=== PATIENT | male | born 1995 ===

== ENCOUNTER 2019-01-26 05:30 | Day surgery (SDC) | payer OTHER ==
[2019-01-26] MEDS ORDERED: TRAM1TAB98 PO (08:40)
[2019-01-26] MEDS ORDERED: DUI500 PO (08:40)
== END 2019-01-26 14:40 | disposition home or self-care (01) ==
LOC: CIR.AMB 05:30
DX: M23.322 Other meniscus derangements, posterior horn of medial meniscus, left knee (principal); M65.862 Other synovitis and tenosynovitis, left lower leg; M67.52 Plica syndrome, left knee